=== PATIENT | male | born 1970 | race Caucasian/White ===

== ENCOUNTER 2019-08-13 04:09 | Emergency (ER) | payer OTHER ==
[~2019-08-13] VITALS: Ht 167.6 cm; Wt 59.6 kg
--- NOTE | 2019-08-13 04:39 | NUR ---
patient steadily ambulated into room, patient does have dried blood on nose and nose is swollen and disformed. patient denies MCKENNA,cp, or difficulty breathing
[2019-08-13] MEDS ORDERED: HYDROcodone/APAP 5/325 TABLET ONE (04:49)
[2019-08-13] MEDS ORDERED: HYDROcodone/APAP 5/325 TABLET PO ONE (05:00)
--- NOTE | 2019-08-13 05:38 | NUR ---
PATIENT RESTING COMFORTABLY, AWAITING FOR CT SCAN READ, RN WILL CONTINUE TO MONITOR
[2019-08-13] MEDS ORDERED: NEOSPORIN OINT. PKT 1 PACKET ONE (06:21)
--- NOTE | 2019-08-13 06:59 | NUR ---
TOOK REPORT FROM DEMETRIUS CUELLAR RN, ASSUME CARE AT THIS TIME.
--- NOTE | 2019-08-13 07:11 | NUR ---
MD STARR IN ROOM FOR PT EVAL
[2019-08-13 07:35] VITALS: BP 121/45
== END 2019-08-13 07:38 | disposition home or self-care (01) ==
LOC: ED 04:23
DX: S02.2XXB Fracture of nasal bones, initial encounter for open fracture (principal); R51 Headache; F17.290 Nicotine dependence, other tobacco product, uncomplicated; Y04.8XXA Assault by other bodily force, initial encounter; Y93.89 Activity, other specified; Y92.512 Supermarket, store or market as the place of occurrence of the external cause; Y99.8 Other external cause status
CPT/HCPCS: 70450; 70486; 99285